=== PATIENT | female | born 1975 | race Caucasian/White ===

== ENCOUNTER 2016-12-17 13:40 | Day surgery (SDC) | payer OTHER ==
[~2016-12-17] VITALS: Ht 162.6 cm; Wt 81.7 kg
[~2016-12-17 13:40] MED LIST: 0.9% Sodium Chloride 1,000 ML IV SCH; CLONAZEPAM0.5 M1 PO; INSLEVPEN SC; LEVO200T24 PO; Sodium Chloride LOK Flush 10 mL Syringe IV PRN; fentaNYL-PF 50 mCg/mL 2 mL Inj IVPUSH PRN
[2016-12-17] MEDS ORDERED: FENO160T PO (14:09)
[2016-12-17] MEDS ORDERED: INSU100C11 SUBQ (14:09)
[2016-12-17] MEDS ORDERED: ATRV10T PO (14:09)
[2016-12-17] MEDS ORDERED: LACT1CAP73 PO (14:09)
[2016-12-17 14:10] VITALS: BP 122/78; PULSE 99; RESP 16; O2SAT 100
[2016-12-17] MEDS ORDERED: FURO-128 PO (14:10)
[2016-12-17] MEDS ORDERED: POTA10TA38 PO (14:10)
[2016-12-17 15:18] VITALS: BP 106/68; PULSE 93; RESP 16; O2SAT 100
--- NOTE | 2016-12-17 15:22 | PCM.ENDCOL ---
Colonoscopy Date of Service: December 17, 2016 Physician Wiliam Hancock MD Pre Procedure Diagnosis: Diarrhea Post Procedure Dx & Findings: Polyp and hemorrhoids Procedure Colonoscopy PROCEDURE IN DETAIL: Prep adequate] After unremarkable rectal examination the Olympus video colonoscope was inserted patient's anal canal and was advanced to cecum. Landmarks were identified including the ileocecal valve and appendiceal orifice. Scope was further advanced to the terminal ileum which showed normal villous structures without any ulcer or mass erosions. Advanced 10 cm. Scope was withdrawn systematically. Visualized colonic mucosa showed healthy shiny mucosa with normal healthy-appearing vasculature. Visualized colonic mucosa throughout shiny mucosa with normal healthy-appearing- appearing vasculature. Random biopsies were obtained for workup of diarrhea from the cecum to the rectum. In the transverse colon, there was a 6-7 mm flat polyp which was resected completely using cold snare. In the rectum, there was a 3 mm polyp which was resected using cold snare. In the rectosigmoid junction , there was a 3 cm polyp. This was removed completely using hot snare. 5 resolution clips deployed to successfully seal the entire mucosal defect. In the rectum retroflexion was done which showed hemorrhoids. Anal canal was inspected carefully on the way out and hemorrhoids noted. Impression Polyp 3 status post complete removal; largest one was 3 cm. Hemorrhoids Recommendation Repeat colonoscopy 1 year Presedation Assessment Risks and Benefits Informed consent was obtained from the patient after all risks and benefits including but not limited to drug reaction, infection, pain, bleeding, perforation, as well as alternatives were discussed. Patient monitoring Continuous pulse oximetry, cardiac monitoring, blood pressure monitoring, IV access, and oxygen at 2L per nasal cannula. Periprocedural Fentanyl: Fentanyl 175mcg Incrementally Midazolam: Midazolam 7mg Incrementally Complications There were no periprocedural complications identified. Post Procedure Plan Post Procedure Recommendations 1. Restrict activities today. 2. Resume normal activities in the morning. 3. Resume medications. 4. Patient informed of normal post procedure side effects as bloating, drowsiness, blood streaking in the stool. 5. average risk CRCS. If colon polyps come back as: -Hyperplastic- can repeat colonoscopy in 10 years -Tubular adenoma- repeat colonoscopy in 5 years -Tubulovillous/villous adenoma- repeat colonoscopy in 3 years -If any dysplasia- return to clinic as soon as possible 6. Please don't hesitate to call me with any questions. Wiliam Hancock MD December 17, 2016 15:22
[2016-12-17 15:28] VITALS: BP 105/69; PULSE 89; RESP 16; O2SAT 100
[2016-12-17 15:38] VITALS: BP 105/66; PULSE 90; RESP 16; O2SAT 100
--- NOTE | 2016-12-19 11:42 | PATH ---
SURGICAL PATHOLOGY Attending Physician:Wiliam Hancock M.D. CASE STATUS: Signed Out PATIENT NAME: AD GRAY PID: [id number] : 1975 DATE COLLECTED:12/17/2016 00:00 SPECIMEN: 1: Colon, Biopsy 2: Colon, Biopsy 3: Rectum, Biopsy CLINICAL HISTORY: 1. RANDOM COLON BXS 2. TRANSVERSE COLON POLYP 3. RECTAL POLYPS FINAL DIAGNOSIS: 1.RANDOM COLON BIOPSIES: COLONIC MUCOSA WITH NO DIAGNOSTIC ALTERATIONS. Negative for inflammation, dysplasia and malignancy. 2.TRANSVERSE COLON POLYP: SESSILE SERRATED ADENOMA, MULTIPLE FRAGMENTS. 3.RECTAL POLYPS: MULTIPLE FRAGMENTS OF VILLOUS ADENOMA AND TRADITIONAL SERRATED ADENOMA, SEE COMMENT. No evidence of malignancy. ICD10 code D12.3 D12.8 NOTE: Current surveillance guidelines recommend that a traditional serrated adenoma should be managed similar to an advanced adenoma. Complete polypectomy and shortened surveillance interval are recommended. GROSS DESCRIPTION: The specimen is received in three formalin filled containers labeled with the patient's name. 1). The specimen is sublabeled "random colon" and consists of multiple portions of tissue which aggregate to 0.4 x 0.4 x 0.2 CM. The specimen is entirely submitted in cassette 1A. 2). The specimen is sublabeled "transverse colon polyp" and consists of multiple portions of tissue which aggregate to 0.4 x 0.4 x 0.2 CM. The specimen is entirely submitted in cassette 2A. 3). The specimen is sublabeled "rectal polyps" and consists of multiple portions of tissue which aggregate to 1.5 x 1.0 x 0.7 CM. The specimen is entirely submitted in cassettes 3A, 3B, 3C. The largest portions are sectioned into multiple pieces and submitted in cassette 3B. 12/18/2016 [facility] MICRO DESCRIPTION: See diagnosis. ICD-9 CODES: CPT CODES: 1: 96770 2: 50871 3: 13488 Electronically Signed Out Rosey Marte MD [facility], [place] [address] Technical component performed at [facility], [facility] [address], [place], [address]
== END 2016-12-17 23:59 | disposition home or self-care (01) ==
LOC: END 13:40
PROVIDERS: ATTEND Internal Medicine
DX: D12.3 Benign neoplasm of transverse colon (principal); D12.8 Benign neoplasm of rectum; K64.8 Other hemorrhoids; E78.5 Hyperlipidemia, unspecified; G47.00 Insomnia, unspecified; E10.9 Type 1 diabetes mellitus without complications; E03.9 Hypothyroidism, unspecified; F98.8 Other specified behavioral and emotional disorders with onset usually occurring in childhood and adolescence; K86.1 Other chronic pancreatitis; G25.81 Restless legs syndrome; E78.1 Pure hyperglyceridemia; Z96.41 Presence of insulin pump (external) (internal); Z79.4 Long term (current) use of insulin; Z79.51 Long term (current) use of inhaled steroids
CPT/HCPCS: 45380; 45385; 99153; G0500; J7030